=== PATIENT | female | born 1960 | race Hispanic/Latino ===

== ENCOUNTER 2018-10-01 07:37 | Day surgery (SDC) | payer MEDICAID ==
[2018-10-01] MEDS ORDERED: WATER FOR IRRIG STERILE IR ONE (08:59)
[2018-10-01] MEDS ORDERED: NACL 0.9% 1000 ML 1,000 ML IV SCH (09:00)
--- NOTE | 2018-10-01 09:05 | Anesthesia Consultation ---
Anesthesia Consult and Med Hx Date of service: 10/01/18 - Airway Anesthetic Teeth Evaluation: Edentulous ROM Head & Neck: Adequate Mental/Hyoid Distance: Adequate Mallampati Class: Class III Intubation Access Assessment: Possibly Difficult - Pre-Operative Health Status ASA Pre-Surgery Classification: ASA3 Proposed Anesthetic Plan: MAC - Pulmonary Hx Smoking: Yes (current smoker 1p/day x 30 years) Hx Asthma: Yes COPD: Yes Home Oxygen Therapy: Yes (sometimes) Hx Pneumonia: No Hx Sleep Apnea: No - Cardiovascular System Hx Hypertension: Yes - Central Nervous System Hx Neuromuscular Disorder: Yes ([place] Palsy) Hx Psychiatric Problems: Yes (Bipolar Disorder) - Gastrointestinal Hx Ulcer: (Irritable bowel syndrome) Hx Gastroesophageal Reflux Disease: Yes (moderate, uncontrolled, off meds ) - Endocrine Hx Non-Insulin Dependent Diabetes: Yes - Hematic Hx Anemia: Yes - Other Systems Hx Cancer: No Hx Obesity: Yes (BMI 66.1)
--- NOTE | 2018-10-01 09:08 | Anesthesia Day of Surgery ---
Anesthesia Day of Surgery - Day of Surgery Patient Examined: Yes Patient H&P Reviewed: Yes Patient is NPO: Yes
[2018-10-01] MEDS ORDERED: DIPRIVAN 10 MG/ML IV ONE ×2 (09:11)
--- NOTE | 2018-10-01 09:51 | Operative Report ---
Operative Report Operative Report: DOS: 10/01/18 SURGEON: Denis Castillo MD EGD with biopsy REPORT PREOPERATIVE DIAGNOSIS and POSTOPERATIVE DIAGNOSIS: Abdominal pain, diarrhea ESTIMATED BLOOD LOSS: minimal DESCRIPTION OF PROCEDURE: A high-resolution peds colonoscope was passed through the oropharynx, esophagus, stomach, and second portion of duodenum. The scope was carefully withdrawn. Retroflexion was performed in the stomach. At the end of the procedure, the scope was cleaned using normal technique. Vital signs monitored continuously throughout. SEDATION: Provided by [facility]. COMPLICATIONS: None. FINDINGS: * No gross lesions in the duodenum. Biopsies were taken to rule out celiac disease. A total of 6 biopsies were taken, the first from the duodenal bulb, with each subsequent biopsies progressively distal with the last biopsy as distal as could be reached with the endoscope * Moderate amount of bile in the stomach * Moderate gastritis of the entire stomach. Biopsies were taken to rule out H. Pylori infection. A total of 5 biopsies were taken, 2 from the antrum, 1 from the incisura, 2 from the body. * GE junction at 38cm from the incisors * Mild LA Grade B reflux esophagitis of the distal 2cm of the esophagus * Remainder of the exam was normal RECOMMENDATIONS: * f/u path results * return to clinic if symptoms are persisting
--- NOTE | 2018-10-01 09:57 | Operative Report ---
Operative Report Operative Report: DOS: 10/01/18 SURGEON: Denis Castillo MD COLONOSCOPY with snare polypectomy REPORT PREOPERATIVE AND POSTOPERATIVE DIAGNOSIS: PH colon polyps DESCRIPTION OF PROCEDURE: The colonoscope was passed to the cecum as identified by the ileocecal valve and appendiceal orifice. Scope was carefully withdrawn. Retroflexion was performed in the rectum. At the end of procedure, the scope was cleaned using normal technique. Vital signs monitored continuously throughout. SEDATION: Provided by [facility]. Quality of the prep was poor COMPLICATIONS: None. ESTIMATED BLOOD LOSS: Minimal FINDINGS: * Significant amount of semi-liquid stool in the entire colon, limiting views * Mild sigmoid diverticulosis * 6mm sessile polyp in the ascending colon removed by cold snare polypectomy * Remainder of the exam was unremarkable RECOMMENDATIONS: * Due to poor quality of the colon cleanse, repeat colonoscopy with extended prep in 1 year
[2018-10-01 10:38] VITALS: BP 132/76
== END 2018-10-01 07:38 | disposition home or self-care (01) ==
LOC: GIO 07:37
PROVIDERS: ATTEND Student in an Organized Health Care Education/Training Program
DX: K51.40 Inflammatory polyps of colon without complications (principal); K57.30 Diverticulosis of large intestine without perforation or abscess without bleeding; K21.0 Gastro-esophageal reflux disease with esophagitis; K29.70 Gastritis, unspecified, without bleeding; K31.89 Other diseases of stomach and duodenum; E11.9 Type 2 diabetes mellitus without complications; I10 Essential (primary) hypertension; J44.9 Chronic obstructive pulmonary disease, unspecified; F17.210 Nicotine dependence, cigarettes, uncomplicated; G43.909 Migraine, unspecified, not intractable, without status migrainosus; E66.9 Obesity, unspecified; M79.7 Fibromyalgia; F31.9 Bipolar disorder, unspecified; F41.9 Anxiety disorder, unspecified; M06.9 Rheumatoid arthritis, unspecified; Z79.899 Other long term (current) drug therapy; Z88.2 Allergy status to sulfonamides; Z88.6 Allergy status to analgesic agent; Z88.0 Allergy status to penicillin; Z91.013 Allergy to seafood; Z88.5 Allergy status to narcotic agent; Z91.041 Radiographic dye allergy status; Z98.890 Other specified postprocedural states; Z68.44 Body mass index [BMI] 60.0-69.9, adult; Z98.51 Tubal ligation status; Z91.81 History of falling; Z86.2 Personal history of diseases of the blood and blood-forming organs and certain disorders involving the immune mechanism
CPT/HCPCS: 43239; 45385; 82962; 88305; 88342; J2704; J7030

== ENCOUNTER 2018-12-14 08:28 | Outpatient (CLI) | payer MEDICAID ==
--- NOTE | 2018-12-14 14:16 | Nuclear Medicine Report ---
NUCLEAR MEDICINE GASTRIC EMPTYING SCAN HISTORY: Diarrhea, diabetes, satiety TECHNIQUE: Anterior abdominal images were obtained for 90 minutes following ingestion of 1 mCi of chelsey hnetium 99m sulfur colloid in oatmeal. Emptying curves were constructed. FINDINGS: Half-life for gastric emptying measures 101 minutes. There is no significant radiographic e vidence for reflux disease. IMPRESSION: Borderline gastroparesis. Signer Name: Derek Tavarez Jr, MD Signed: 12/14/2018 2:11 PM Workstation Name: [id number]
== END 2018-12-14 08:29 | disposition home or self-care (01) ==
LOC: NM 08:28
PROVIDERS: ATTEND Student in an Organized Health Care Education/Training Program
DX: K21.9 Gastro-esophageal reflux disease without esophagitis (principal); R19.7 Diarrhea, unspecified; Z86.010 Personal history of colon polyps; E11.43 Type 2 diabetes mellitus with diabetic autonomic (poly)neuropathy; K31.84 Gastroparesis
CPT/HCPCS: 78264; A9541

== ENCOUNTER 2021-08-15 06:49 | Emergency (ER) | payer MEDICAID ==
[2021-08-15 06:54] VITALS: BP 183/106
--- NOTE | 2021-08-15 08:05 | XRay Report ---
CHEST 2 VIEWS INDICATION / CLINICAL INFORMATION: CHEST PAIN. COMPARISON: 12/23/2013 FINDINGS: SUPPORT DEVICES: None. HEART / MEDIASTINUM: No significant abnormality. LUNGS / PLEURA: No significant pulmonary or pleural abnormality. No pneumothorax. ADDITIONAL FINDINGS: No significant additional findings. IMPRESSION: 1. No acute findings. Signer Name: Derek Tavarez Jr, MD Signed: 08/15/2021 8:01 AM Workstation Name: [id number]
[2021-08-15 08:22] LABS: Basophils % (Auto) 0.4 % (0.0-1.8); Eosinophils # (Auto) 0.4 K/mm3 (0.0-0.4); Eosinophils % (Auto) 3.5 % (0.0-4.3); Hematocrit 41.9 % (30.3-42.9); Hemoglobin 13.6 gm/dl (10.1-14.3); Lymphocytes # (Auto) 2.2 K/mm3 (1.2-5.4); Lymphocytes % (Auto) 20.6 % (13.4-35.0); Mean Corpuscular HGB Conc 32 % (30-34); Mean Corpuscular Volume 85 fl (79-97); Monocytes % (Auto) 8.9 % (0.0-7.3); Platelet Count 358 K/mm3 (140-440); Red Blood Count 4.95 M/mm3 (3.65-5.03); Red Cell Distribution Width 14.1 % (13.2-15.2)
[2021-08-15 08:30] LABS: Alanine Aminotransferase 13 units/L (7-56); Albumin 4.1 g/dL (3.9-5); BUN/Creatinine Ratio 11; Blood Urea Nitrogen 10 mg/dL (7-17); Calcium 9.4 mg/dL (8.4-10.2); Hemolysis Index 5
--- NOTE | 2021-08-16 12:08 | Electrocardiograph Report ---
[facility] Test Date: 2021-08-15 Test Time: 06:59:27 Pat Name: MARY FARMER Department: Room: Gender: F Cut [employer] Operator: GILBERTO : 1960 Requested By: ED DOC Order Number: [id number] Reading MD: Elayne Pelletier Measurements Intervals [place] Rate: 95 P: 85 [place]: 188 QRS: 69 QRSD: 79 T: 64 QT: 366 QTc: 460 Interpretive Statements Sinus rhythm No previous ECG available for comparison Electronically Signed On 08-16-2021 12:07:55 EDT by Elayne Pelletier
== END 2021-08-15 10:00 | disposition left against medical advice (07) ==
LOC: ED 06:49
DX: R07.9 Chest pain, unspecified (principal); Z53.21 Procedure and treatment not carried out due to patient leaving prior to being seen by health care provider
CPT/HCPCS: 36415; 71046; 80053; 84484; 85025; 93005